=== PATIENT | male | born 1970 | race Hispanic/Latino ===

== ENCOUNTER → 2017-07-04 | Outpatient (CLI) | payer OTHER ==
[~2017-07-04] MED LIST: ASPI-555 PO; ATOR40TA69 PO; CARV6.25 PO; CLOP75TA14 PO; DOXY100C2 PO; LISI2.5T2 PO; SPIR25TA4 PO
== END | disposition home or self-care (01) ==
LOC: SHCH 11:25
PROVIDERS: ATTEND Internal Medicine Cardiovascular Disease
DX: I25.5 Ischemic cardiomyopathy (principal)
CPT/HCPCS: 93306

== ENCOUNTER 2017-08-16 08:21 | Observation (INO) | payer OTHER ==
[2017-08-14 10:03] VITALS: BP 97/65
[2017-08-14 11:18] LABS: CREATININE 1.1 mg/dL (0.5-1.5); POTASSIUM 4.2 mmol/L (3.5-5.1)
[2017-08-14 12:25] LABS: WHITE BLOOD COUNT (AUTO) 5.1 K/uL (4.8-10.8)
[2017-08-14 12:26] LABS: BASOPHILS % (AUTO) 0.6 % (0.0-5.0); EOSINOPHILS % (AUTO) 1.4 % (0.0-8.0); HEMATOCRIT 41.6 % (42-54); LYMPHOCYTES % (AUTO) 37.6 % (21.0-51.0); MEAN CORPUSCULAR HEMOGLOBIN 30.9 pg (27.0-33.0); MEAN CORPUSCULAR HGB CONC 34.6 g/dL (32.0-36.0); MEAN CORPUSCULAR VOLUME 89.4 fL (79-99); MONOCYTES % (AUTO) 8.4 % (3.0-13.0); NEUTROPHILS % (AUTO) 51.7 % (40.0-77.0); PLATELET COUNT (AUTO) 188 K/uL (130-400); RED BLOOD CELL COUNT(AUTO) 4.65 MIL/uL (4.50-6.20); RED CELL DISTRIBUTION WIDTH 14.2 % (11.0-15.5)
[2017-08-14 13:49] LABS: INR 1.08 (0.85-1.15); PARTIAL THROMBOPLASTIN TIME 23.7 SEC (26.3-35.5); PROTHROMBIN TIME 11.3 SEC (9.6-11.6)
[~2017-08-16] VITALS: Ht 175.3 cm; Wt 76.7 kg
[~2017-08-16 08:21] MED LIST changes: -DOXY100C2 PO
[2017-08-16 08:30] VITALS: BP 107/74
[2017-08-16] MEDS: SODIUM CHLORIDE 0.9% 1000ML 1,000 ML IV SCH ×2 (09:25→21:13)
[2017-08-16] MEDS ORDERED: CEFAZOLIN 1GM / D5W 50ML 150 ML ONE (12:35)
[2017-08-16] MEDS ORDERED: LIDOCAINE HCL 1% MDV 50ML VIAL ONE (12:35)
[2017-08-16] MEDS ORDERED: ISOVUE-300 100 ML VIAL IV ONE (12:35)
[2017-08-16] MEDS ORDERED: BUPIVACAINE/PF 0.25% 30ML VIAL IJ ONE (12:35)
[2017-08-16] MEDS ORDERED: MIDAZOLAM HCL 1 MG/ML 2ML VIAL ONE ×3 (12:47→14:40)
[2017-08-16] MEDS ORDERED: MEPERIDINE-PF 25 MG/ML SYG ONE (12:47)
[2017-08-16] MEDS ORDERED: MEPERIDINE-PF 50 MG/ML SYG ONE (13:36)
[2017-08-16] MEDS ORDERED: VANCOMYCIN 1GM+NS 250ML 250 ML IV ONE (13:47)
[2017-08-16] MEDS ORDERED: THROMBIN-JMI 5000 UNIT/VIAL TP ONE (14:38)
[2017-08-16] MEDS ORDERED: OCTYL 2-CYANOACRYLATE 1 EACH TP ONE (15:04)
[2017-08-16] MEDS ORDERED: ACETAMINOPHEN-CODEINE 300/30MG TAB PO PRN ×2 (15:15)
[2017-08-16] MEDS ORDERED: ONDANSETRON HCL 4 MG/2 ML VIAL IV PRN (15:15)
[2017-08-16] MEDS ORDERED: ACETAMINOPHEN 325 MG TAB PO PRN ×2 (15:15)
[2017-08-16] MEDS ORDERED: DOXY100C2 PO (15:26)
[2017-08-16 19:30] VITALS: BP 121/81
[2017-08-16] MEDS ORDERED: LISINOPRIL 2.5 MG TABLET PO SCH (21:00)
[2017-08-16] MEDS ORDERED: ATORVASTATIN CALCIUM 40 MG TABLET PO SCH (21:00)
[2017-08-16] MEDS: CEFAZOLIN SODIUM 1 GM VIAL IV SCH (21:04)
[2017-08-16] MEDS: SPIRONOLACTONE 25 MG TAB PO SCH (21:05)
[2017-08-16] MEDS: CARVEDILOL 6.25 MG TABLET PO SCH (21:06)
[2017-08-16] MEDS: CLOPIDOGREL BISULFATE 75 MG TAB PO SCH (21:06)
[2017-08-16] MEDS: ASPIRIN 81 MG EC TAB PO SCH (21:06)
[2017-08-16 23:21] VITALS: BP 117/79
[2017-08-17 04:00] VITALS: BP 109/74
[2017-08-17] MEDS: CEFAZOLIN SODIUM 1 GM VIAL IV SCH (04:42)
[2017-08-17 07:20] VITALS: BP 109/68
[2017-08-17] MEDS: CLOPIDOGREL BISULFATE 75 MG TAB PO SCH (08:02)
[2017-08-17] MEDS: ASPIRIN 81 MG EC TAB PO SCH (08:02)
[2017-08-17] MEDS: CARVEDILOL 6.25 MG TABLET PO SCH (08:02)
[2017-08-17] MEDS: SPIRONOLACTONE 25 MG TAB PO SCH (08:02)
[2017-08-17 11:05] VITALS: BP 114/76
== END 2017-08-17 12:30 | disposition home or self-care (01) ==
LOC: DAH 08:21 → DAHIP 08:22 → DAH 08:22 → 2CH 15:51
PROVIDERS: ADMIT Internal Medicine Cardiovascular Disease; ATTEND Internal Medicine Cardiovascular Disease
DX: I25.5 Ischemic cardiomyopathy (principal); I50.42 Chronic combined systolic (congestive) and diastolic (congestive) heart failure; I25.2 Old myocardial infarction; Z95.5 Presence of coronary angioplasty implant and graft; Z79.899 Other long term (current) drug therapy; Z79.82 Long term (current) use of aspirin
CPT/HCPCS: 33225; 33249; 36415; 71046; 80048; 85025; 85610; 85730; 93005; A4218; A4606; C1769 ×3; C1882; C1894; C1895; C1900; G0378 ×28; J0690 ×3; J2175 ×2; J2250 ×3; J3370; J3490 ×3; J7030; Q9967; 33262; 99152; 99153